=== PATIENT | male | born 1980 | race Caucasian/White ===

== ENCOUNTER 2020-04-17 23:11 | Emergency (ER) | payer OTHER ==
[~2020-04-17] VITALS: Ht 188 cm; Wt 97.5 kg
[~2020-04-17 23:11] MED LIST: IBUPROFEN 800800 MG PO; LORTAB 5 MG/5001 TAB PO; NOHOMEMEDICATIONS
[2020-04-17] MEDS ORDERED: STRATTERA80 MG PO (23:34)
[2020-04-17] MEDS ORDERED: BUPROPION XL300 MG PO (23:34)
[2020-04-17] MEDS ORDERED: ABILIFY15 MG PO (23:34)
[2020-04-17] MEDS ORDERED: LAMOTRIGINE250 MG PO (23:35)
[2020-04-17] MEDS ORDERED: PROTONIX40 M1 PO (23:35)
[2020-04-17] MEDS ORDERED: CYMBALTA60 MG PO (23:35)
[2020-04-17] MEDS ORDERED: PREGABALIN75 MG PO (23:36)
[2020-04-17 23:59] LABS: ABSOLUTE NEUTROPHILS 5.9 thou/uL (1.4-8.2); BASOPHILS 1.2 % (0.0-2.0); EOSINOPHILS 1.1 % (0.0-3.0); HEMATOCRIT 44.1 % (42.0-52.0); HEMOGLOBIN 15.3 gm/dL (14.0-18.0); LYMPHOCYTES 29.2 % (24.0-44.0); MCH 31.1 pg (26.0-34.0); MCHC 34.8 g/dL (28.0-37.0); MCV 89.5 fL (80.0-100.0); PLATELET COUNT 263 thou/uL (150-400); POLYS 60.5 % (36.0-66.0); RBC 4.93 mil/uL (4.50-6.00); RDW 13.2 % (10.5-14.5); WBC 9.8 thou/uL (4.0-11.0)
[2020-04-18 00:13] LABS: CALCIUM 9.1 mg/dL (8.5-10.1); CREATININE 1.1 mg/dL (0.7-1.3); POTASSIUM 3.3 mmol/L (3.5-5.1)
[2020-04-18 04:07] LABS: AMP/METHAMP Negative (Negative); BARBITURATES Negative (Negative); BENZODIAZEPINES Negative (Negative); COCAINE POSITIVE (Negative); METHADONE POSITIVE (Negative); OPIATES POSITIVE (Negative); PCP Negative (Negative)
[2020-04-18] MEDS ORDERED: NORCO 7.5-3251 EACH PO (04:52)
[2020-04-18] MEDS ORDERED: SENNA-DOCUSATE1 EAC1 PO (04:56)
[2020-04-18 05:16] VITALS: BP 157/90
--- NOTE | 2020-04-19 09:02 | EKG ---
[facility] [place] [address] ELECTROCARDIOGRAM REPORT Name: MARIA E BLANCASJIM Ortiz Room #: DEP [facility]#: [id number] Admission: 04/17/20 Attend Phys: Discharge: 04/18/20 Date of : 78 Report #: [id number] THIS REPORT FOR: cc: [facility] - Clinic physician unknown [facility] - Clinic physician unknown Ata Schulz MD [facility] ~ THIS REPORT FOR: //name// [facility] ED Test Date: 2020-04-18 Test Time: 01:43:52 Pat Name: JEWEL BLANCAS Department: Room: Gender: Seam [employer]er: : 1980 Requested By: Micahel [place] Order Number: [id number] MD: Ata Schulz Measurements Intervals [place] Rate: 133 P: 74 [place]: 135 QRS: 77 QRSD: 90 T: -25 QT: 311 QTc: 463 Interpretive Statements Sinus tachycardia Poor R wave progression No previous ECG available for comparison Electronically Signed On 04-19-2020 9:02:42 CDT by Ata Schulz [email or web address] <ELECTRONICALLY SIGNED> By: Ata Schulz MD, [facility] 04/19/20901 0143 014 Ata Schulz MD, FACC /EPI
== END 2020-04-18 05:20 | disposition home or self-care (01) ==
LOC: ER 23:11
PROVIDERS: Emergency Medicine
DX: S42.301A Unspecified fracture of shaft of humerus, right arm, initial encounter for closed fracture (principal); F14.10 Cocaine abuse, uncomplicated; F19.90 Other psychoactive substance use, unspecified, uncomplicated; Z79.899 Other long term (current) drug therapy; V49.9XXA Car occupant (driver) (passenger) injured in unspecified traffic accident, initial encounter; Y93.89 Activity, other specified; Y92.410 Unspecified street and highway as the place of occurrence of the external cause; Y99.8 Other external cause status

== ENCOUNTER 2020-12-17 22:27 | Emergency (ER) | payer BC ==
[~2020-12-17] VITALS: Ht 188 cm; Wt 99.8 kg
[~2020-12-17 22:27] MED LIST changes: +ABILIFY15 MG PO; +BUPROPION XL300 MG PO; +CYMBALTA60 MG PO; +LAMOTRIGINE250 MG PO; +NORCO 7.5-3251 EACH PO; +PREGABALIN75 MG PO; +PROTONIX40 M1 PO; +SENNA-DOCUSATE1 EAC1 PO; +STRATTERA80 MG PO
[2020-12-17] MEDS ORDERED: ABILIFY10 MG PO (22:38)
[2020-12-17] MEDS ORDERED: ERYTHROMYCIN E3.5 G2 OPHTHALMIC (22:49)
[2020-12-17 22:59] VITALS: BP 147/96
== END 2020-12-17 22:59 | disposition home or self-care (01) ==
LOC: ER 22:27
DX: S05.02XA Injury of conjunctiva and corneal abrasion without foreign body, left eye, initial encounter (principal); Z79.899 Other long term (current) drug therapy; X58.XXXA Exposure to other specified factors, initial encounter; Y93.89 Activity, other specified; Y92.89 Other specified places as the place of occurrence of the external cause; Y99.8 Other external cause status